=== PATIENT | male | born 1955 | race African-American/Black ===

== ENCOUNTER 2017-05-18 17:12 | Inpatient (IN) | payer MEDICAID ==
[~2017-05-18] VITALS: Ht 177.8 cm; Wt 96.2 kg
[2017-05-18 01:29] VITALS: BP 186/112
[2017-05-18 19:47] LABS: BASOPHILS % 1.1 % (0.0-2.0); EOSINOPHILS % 0.2 % (0.0-5.0); HEMATOCRIT. 37.3 % (42.0-52.0); HEMOGLOBIN. 12.8 g/dL (14.0-18.0); LYMPHOCYTES % 12.7 % (20.0-50.0); MEAN CORPUSCULAR HEMOGLOBIN 28.9 pg (28.0-32.0); MEAN CORPUSCULAR VOLUME 84.3 fL (80.0-94.0); MEAN PLATELET VOLUME 7.7 fl (7.4-10.4); MONOCYTES % 9.4 % (2.0-8.0); NEUTROPHILS % 76.6 % (40.0-76.0); PLATELET 425 x1000/uL (130-400); RED BLOOD CELL COUNT 4.43 mill/uL (4.7-6.1); RED CELL DISTRIBUTION WIDTH 14.5 % (11.6-14.6)
[2017-05-18 19:48] LABS: CHLORIDE 95 mEq/L (98-107)
[2017-05-18 19:55] LABS: CARBON DIOXIDE 28 mEq/L (21-32)
[2017-05-18 19:58] LABS: CLARITY URINE CLEAR (CLEAR); COLOR URINE YELLOW (YELLOW); GLUCOSE URINE NEGATIVE (NEGATIVE); KETONES URINE TRACE (NEGATIVE); LEUKOCYTE ESTERASE URINE NEGATIVE (NEGATIVE); NITRITE URINE NEGATIVE (NEGATIVE); OCCULT BLOOD URINE 3+ (NEGATIVE); PROTEIN URINE 2+ (NEGATIVE); UROBILINOGEN URINE 0.2 E.U./dL (0.2-1.0)
[2017-05-18] MEDS ORDERED: MORPHINE SULFATE 10 MG/ML CPJ IM ONE (22:15)
[2017-05-18] MEDS ORDERED: MORPHINE SULFATE 10 MG/ML CPJ IM SCH ×2 (22:33→22:35)
[2017-05-18] MEDS ORDERED: MORPHINE SULFATE 4 MG/ML CPJ (NOT FOR IM USE) IV ONE (22:45)
[2017-05-18] MEDS ORDERED: MORPHINE SULFATE 4 MG/ML CPJ (NOT FOR IM USE) IV SCH (22:45)
[2017-05-18] MEDS ORDERED: CLONIDINE 0.1MG TABLET PO PRN (23:45)
[2017-05-18] MEDS ORDERED: ENOXAPARIN 40MG/0.4ML SYR SUBCUT SCH (23:45)
[2017-05-18] MEDS ORDERED: ONDANSETRON HCL 4MG/2ML VIAL IV PRN (23:45)
[2017-05-18] MEDS ORDERED: ACETAMINOPHEN 325MG TABLET PO PRN (23:45)
[2017-05-18] MEDS ORDERED: MAGNESIUM/ALUMINUM HYDROXIDE/SIMETHICONE 30ML UDC PO PRN (23:45)
[2017-05-18] MEDS ORDERED: IPRATROPIUM/ALBUTEROL 0.5-3(2.5)MG/3ML NEB INH PRN (23:45)
[2017-05-19 01:15] LABS: CHLORIDE 97 mEq/L (98-107)
[2017-05-19 01:20] LABS: CARBON DIOXIDE 27 mEq/L (21-32)
[2017-05-19 01:29] VITALS: BP 186/112
[2017-05-19] MEDS ORDERED: DEXTROSE 50% WATER 50ML SYRINGE IV PRN (02:15)
[2017-05-19] MEDS: MORPHINE SULFATE 4 MG/ML CPJ (NOT FOR IM USE) IV PRN ×4 (02:40→20:44)
[2017-05-19] MEDS ORDERED: PHEN100C4 PO (03:03)
[2017-05-19] MEDS ORDERED: lipitor (03:04)
[2017-05-19] MEDS ORDERED: [UNRECOGNIZED DRUG - REMARK] (03:05)
[2017-05-19] MEDS ORDERED: [UNRECOGNIZED DRUG - REMARK] (03:05)
[2017-05-19 04:00] VITALS: BP 132/85
[2017-05-19] MEDS: BLOOD SUGAR DIAGNOSTIC STRIP TEST SCH ×4 (05:58→20:42)
[2017-05-19] MEDS: INSULIN LISPRO 100 UNITS/ML SUBCUT SCH ×4 (05:59→21:00)
[2017-05-19 06:54] LABS: BASOPHILS % 0.4 % (0.0-2.0); EOSINOPHILS % 1.1 % (0.0-5.0); HEMOGLOBIN. 12.3 g/dL (14.0-18.0); LYMPHOCYTES % 19.7 % (20.0-50.0); MEAN CORPUSCULAR HEMOGLOBIN 29.3 pg (28.0-32.0); MEAN PLATELET VOLUME 7.9 fl (7.4-10.4); MONOCYTES % 10.4 % (2.0-8.0); NEUTROPHILS % 68.4 % (40.0-76.0); PLATELET 375 x1000/uL (130-400); RED BLOOD CELL COUNT 4.19 mill/uL (4.7-6.1); RED CELL DISTRIBUTION WIDTH 14.7 % (11.6-14.6)
[2017-05-19 08:00] VITALS: BP 123/71
[2017-05-19] MEDS: PHENYTOIN SODIUM EXTENDED 100MG CAPSULE PO SCH (08:11)
[2017-05-19] MEDS: ENOXAPARIN 30MG/0.3ML SYR SUBCUT SCH ×2 (08:12→20:42)
[2017-05-19] MEDS ORDERED: PNEUMOCOCCAL 23-VAL P-SAC VAC 0.5 ML IM ONE (09:00)
[2017-05-19] MEDS ORDERED: INFLUENZA VIRUS VACCINE 0.5ML SYR IM ONE (10:00)
[2017-05-19] MEDS ORDERED: SODIUM CHLORIDE 0.9% 10ML VIAL ONE (11:17)
[2017-05-19] MEDS ORDERED: IOHEXOL-300 100 ML BOTTLE ONE (11:17)
[2017-05-19 11:58] VITALS: BP 136/74
[2017-05-19 16:00] VITALS: BP 162/88
[2017-05-19] MEDS: DOCUSATE SODIUM 100MG CAPSULE PO SCH (16:08)
[2017-05-19 20:00] VITALS: BP 128/64
[2017-05-20] VITALS: BP 141/70
[2017-05-20] MEDS: HYDROCODONE/ACETAMINOPHEN 5/325MG TABLET PO PRN ×3 (01:25→23:16)
[2017-05-20 04:00] VITALS: BP 136/78
[2017-05-20 04:00] LABS: *AMPHETAMINES SCREEN URINE NEGATIVE (NEGATIVE); *BARBITURATES SCREEN URINE NEGATIVE (NEGATIVE); *BENZODIAZEPINES SCREEN URINE NEGATIVE (NEGATIVE); CANNABINOID URINE SCREEN NEGATIVE (NEGATIVE); METHADONE URINE SCREEN NEGATIVE (NEGATIVE); OPIATES URINE SCREEN PRESUMTIVE POSITIVE (NEGATIVE); PHENCYCLIDINE URINE SCREEN NEGATIVE (NEGATIVE)
[2017-05-20 04:14] LABS: *COCAINE SCREEN URINE NEGATIVE (NEGATIVE)
[2017-05-20 06:51] LABS: BASOPHILS % 0.4 % (0.0-2.0); EOSINOPHILS % 0.3 % (0.0-5.0); HEMOGLOBIN. 12.8 g/dL (14.0-18.0); LYMPHOCYTES % 16.7 % (20.0-50.0); MEAN CORPUSCULAR HEMOGLOBIN 28.7 pg (28.0-32.0); MEAN CORPUSCULAR VOLUME 87.2 fL (80.0-94.0); MEAN PLATELET VOLUME 7.9 fl (7.4-10.4); MONOCYTES % 11.2 % (2.0-8.0); NEUTROPHILS % 71.4 % (40.0-76.0); PLATELET 421 x1000/uL (130-400); RED BLOOD CELL COUNT 4.47 mill/uL (4.7-6.1); RED CELL DISTRIBUTION WIDTH 14.5 % (11.6-14.6)
[2017-05-20] MEDS: INSULIN LISPRO 100 UNITS/ML SUBCUT SCH ×4 (07:22→20:22)
[2017-05-20] MEDS: BLOOD SUGAR DIAGNOSTIC STRIP TEST SCH ×4 (07:22→20:22)
[2017-05-20 07:23] LABS: CARBON DIOXIDE 26 mEq/L (21-32); CHLORIDE 96 mEq/L (98-107)
[2017-05-20 07:33] VITALS: BP 130/71
[2017-05-20] MEDS: DOCUSATE SODIUM 100MG CAPSULE PO SCH ×2 (08:23→17:00)
[2017-05-20] MEDS: ENOXAPARIN 30MG/0.3ML SYR SUBCUT SCH ×2 (08:23→20:20)
[2017-05-20] MEDS: PHENYTOIN SODIUM EXTENDED 100MG CAPSULE PO SCH (08:23)
[2017-05-20] MEDS ORDERED: DOCUSATE SODIUM 100MG CAPSULE PO SCH (09:00)
[2017-05-20 12:09] VITALS: BP 138/88
[2017-05-20 15:52] VITALS: BP 124/73
[2017-05-20] MEDS: MORPHINE SULFATE 4 MG/ML CPJ (NOT FOR IM USE) IV PRN (17:30)
[2017-05-20] MEDS: LACTULOSE 20G/30ML UDC PO PRN (17:31)
[2017-05-20 20:00] VITALS: BP 134/68
[2017-05-21] VITALS: BP 129/70
[2017-05-21 04:00] VITALS: BP 137/74
[2017-05-21] MEDS: BLOOD SUGAR DIAGNOSTIC STRIP TEST SCH ×4 (06:44→21:06)
[2017-05-21] MEDS: INSULIN LISPRO 100 UNITS/ML SUBCUT SCH ×4 (06:44→21:00)
[2017-05-21 07:49] VITALS: BP 134/69
[2017-05-21] MEDS: DOCUSATE SODIUM 100MG CAPSULE PO SCH ×2 (09:26→16:35)
[2017-05-21] MEDS: ENOXAPARIN 30MG/0.3ML SYR SUBCUT SCH ×2 (09:26→21:05)
[2017-05-21] MEDS: PHENYTOIN SODIUM EXTENDED 100MG CAPSULE PO SCH (09:26)
[2017-05-21 11:43] VITALS: BP 136/71
[2017-05-21] MEDS: MORPHINE SULFATE 4 MG/ML CPJ (NOT FOR IM USE) IV PRN ×3 (12:06→21:06)
[2017-05-21] MEDS: BICALUTAMIDE 50 MG TABLET PO SCH (12:07)
[2017-05-21] MEDS: LACTULOSE 20G/30ML UDC PO PRN ×2 (14:51→14:53)
[2017-05-21 15:50] VITALS: BP 141/79
[2017-05-21 19:32] VITALS: BP 112/70
[2017-05-22 00:13] VITALS: BP 147/80
[2017-05-22] MEDS: MORPHINE SULFATE 4 MG/ML CPJ (NOT FOR IM USE) IV PRN ×2 (00:52→08:06)
[2017-05-22] MEDS: HYDROCODONE/ACETAMINOPHEN 5/325MG TABLET PO PRN (01:53)
[2017-05-22 03:44] VITALS: BP 131/73
[2017-05-22] MEDS: BLOOD SUGAR DIAGNOSTIC STRIP TEST SCH ×2 (06:32→12:10)
[2017-05-22] MEDS: INSULIN LISPRO 100 UNITS/ML SUBCUT SCH ×2 (06:34→12:40)
[2017-05-22] MEDS: LACTULOSE 20G/30ML UDC PO PRN (06:38)
[2017-05-22 08:00] VITALS: BP 128/74
[2017-05-22] MEDS: BICALUTAMIDE 50 MG TABLET PO SCH (08:03)
[2017-05-22] MEDS: DOCUSATE SODIUM 100MG CAPSULE PO SCH ×2 (08:04→16:11)
[2017-05-22] MEDS: PHENYTOIN SODIUM EXTENDED 100MG CAPSULE PO SCH (08:04)
[2017-05-22] MEDS: ENOXAPARIN 30MG/0.3ML SYR SUBCUT SCH (08:04)
[2017-05-22] MEDS ORDERED: HYDR-523 PO (11:06)
[2017-05-22 11:45] VITALS: BP 126/76
[2017-05-22 12:00] VITALS: BP 128/74
[2017-05-22 16:00] VITALS: BP 133/76
== END 2017-05-22 16:40 | disposition home or self-care (01) | DRG 500 ==
LOC: ER 17:21 → 8WST 23:36 → ENRESERV 23:59 → EDBEDREQ 05-19 01:19
PROVIDERS: ADMIT Internal Medicine; ATTEND Internal Medicine
DX: C61 Malignant neoplasm of prostate (principal); R16.0 Hepatomegaly, not elsewhere classified; E87.1 Hypo-osmolality and hyponatremia; I10 Essential (primary) hypertension; D50.0 Iron deficiency anemia secondary to blood loss (chronic); E11.9 Type 2 diabetes mellitus without complications; R33.9 Retention of urine, unspecified; D64.9 Anemia, unspecified; K57.30 Diverticulosis of large intestine without perforation or abscess without bleeding; K59.00 Constipation, unspecified; N40.0 Benign prostatic hyperplasia without lower urinary tract symptoms; Z93.3 Colostomy status; R19.00 Intra-abdominal and pelvic swelling, mass and lump, unspecified site; R31.9 Hematuria, unspecified; E78.5 Hyperlipidemia, unspecified; R59.1 Generalized enlarged lymph nodes
CPT/HCPCS: 36415; 71260; 74176; 80048; 80053; 80061; 80305; 81001; 82962; 83735; 84153; 84443; 85025; 87040; 87086; 90686; 90732; 93970; 96372; 99285; A4216; J1650; J2270; Q9967

== ENCOUNTER 2017-06-01 12:22 | Emergency (ER) | payer MEDICAID ==
[~2017-06-01] VITALS: Ht 177.8 cm; Wt 123.0 kg
[~2017-06-01 12:22] MED LIST: HYDR-523 PO; PHEN100C4 PO; [UNRECOGNIZED DRUG - REMARK]; [UNRECOGNIZED DRUG - REMARK]; lipitor
[2017-06-01 12:45] VITALS: BP 115/75
[2017-06-01 18:54] LABS: CLARITY URINE CLOUDY (CLEAR); COLOR URINE YELLOW (YELLOW); GLUCOSE URINE NEGATIVE (NEGATIVE); KETONES URINE NEGATIVE (NEGATIVE); LEUKOCYTE ESTERASE URINE 1+ (NEGATIVE); NITRITE URINE POSITIVE (NEGATIVE); OCCULT BLOOD URINE 2+ (NEGATIVE); PROTEIN URINE 1+ (NEGATIVE); SPECIFIC GRAVITY URINE 1.018 (1.005-1.030)
== END 2017-06-01 21:44 | disposition home or self-care (01) ==
LOC: ER 13:32
DX: N39.0 Urinary tract infection, site not specified (principal); C61 Malignant neoplasm of prostate; R19.00 Intra-abdominal and pelvic swelling, mass and lump, unspecified site; R33.8 Other retention of urine; I10 Essential (primary) hypertension; E11.9 Type 2 diabetes mellitus without complications
CPT/HCPCS: 51702; 81001; 99284; A4315